=== PATIENT | male | born 1970 | race Two or more races ===

== ENCOUNTER 2024-10-03 16:06 | Emergency (ER) | payer BC, SELFPAY ==
[2024-10-03 16:17] VITALS: BP 149/81; PULSE 66; RESP 18; TEMP 36.6; O2SAT 97; BMI 30.1
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
[2024-10-03] MEDS: HYDROcodone/APAP 5/325 TABLET 1 TAB PO (16:40)
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
== END 2024-10-03 18:56 | disposition home or self-care (01) ==
PROVIDERS: Emergency Provider Emergency Medicine; PCP Family Medicine
DX: S19.9XXA Unspecified injury of neck, initial encounter (principal); S09.90XA Unspecified injury of head, initial encounter; S49.91XA Unspecified injury of right shoulder and upper arm, initial encounter; M79.5 Residual foreign body in soft tissue; V89.2XXA Person injured in unspecified motor-vehicle accident, traffic, initial encounter
CPT/HCPCS: 70450; 72125; 73030; 73060; 99284; A9270

== ENCOUNTER → 2024-11-05 | Outpatient (CLI) | payer BC, SELFPAY ==
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
== END | disposition home or self-care (01) ==
LOC: SMRI 15:35
PROVIDERS: Referring Provider Student in an Organized Health Care Education/Training Program; Visit Provider Student in an Organized Health Care Education/Training Program
DX: R93.0 Abnormal findings on diagnostic imaging of skull and head, not elsewhere classified (principal); H53.9 Unspecified visual disturbance
CPT/HCPCS: 70551